=== PATIENT | female | born 1960 | race Caucasian/White ===

== ENCOUNTER 2016-12-25 08:49 | Emergency (ER) | payer OTHER | END 2016-12-25 09:18 | disposition home or self-care (01) | LOC: MADERS 08:49 | DX: J01.90 Acute sinusitis, unspecified (principal); J44.9 Chronic obstructive pulmonary disease, unspecified; F17.210 Nicotine dependence, cigarettes, uncomplicated | CPT/HCPCS: 99283 ==

== ENCOUNTER 2018-02-03 14:54 | Emergency (ER) | payer SELFPAY ==
[2018-02-03] MEDS ORDERED: Azithromycin 250 MG TAB ONE (15:33)
== END 2018-02-03 15:40 | disposition left against medical advice (07) ==
LOC: MADERS 14:54
DX: R06.00 Dyspnea, unspecified (principal); L30.9 Dermatitis, unspecified; K58.9 Irritable bowel syndrome, unspecified; Z87.891 Personal history of nicotine dependence
CPT/HCPCS: 99284

== ENCOUNTER 2018-07-09 11:59 | Emergency (ER) | payer SELFPAY ==
[2018-07-09] MEDS ORDERED: Azithromycin 250 MG TAB ONE (13:17)
[2018-07-09] MEDS ORDERED: predniSONE 20 MG TAB ONE (13:17)
--- NOTE | 2018-07-09 13:21 | RAD ---
PORTABLE CHEST 1 VIEW: Date: 07/09/18 Time: 1224 hours HISTORY: Dyspnea. FINDINGS: Comparison made with exam of 10/14/07. The heart size is normal. The aorta is tortuous. The lungs are well expanded without focal areas of c onsolidation, pneumothoraces, or pleural effusions. IMPRESSION: No radiographic evidence of acute cardiopulmonary process. POS: [facility]
== END 2018-07-09 13:30 | disposition home or self-care (01) ==
LOC: MADERS 11:59
DX: J44.1 Chronic obstructive pulmonary disease with (acute) exacerbation (principal); B19.20 Unspecified viral hepatitis C without hepatic coma; Z87.891 Personal history of nicotine dependence; Z79.51 Long term (current) use of inhaled steroids
CPT/HCPCS: 71045; 87804; 93005

== ENCOUNTER 2018-07-27 18:43 | Emergency (ER) | payer OTHER, SELFPAY ==
--- NOTE | 2018-07-27 19:28 | RAD ---
FExam: Two views chest Provided clinical history: Cough FINDINGS: Comparison 07/09/2018. Cardiac and mediastinal silhouette is within normal limits. Lungs appear clear. No pleural fluid or pneumothorax apparent. Chronic obstructive changes are redemonstrated. IMPRESSION: No evidence for an acute cardiopulmonary process.
[2018-07-27] MEDS ORDERED: Dexamethasone 4 MG TAB ONE (19:43)
== END 2018-07-27 19:58 ==
LOC: MADERS 18:43
DX: J42 Unspecified chronic bronchitis (principal); F17.210 Nicotine dependence, cigarettes, uncomplicated; Z71.6 Tobacco abuse counseling; Z79.51 Long term (current) use of inhaled steroids
CPT/HCPCS: 71046; 99406; J7620; J8540

== ENCOUNTER 2018-08-01 15:49 | Emergency (ER) | payer OTHER ==
[~2018-08-01 15:49] MED LIST: Iopamidol 370 76% 100 ML VIAL ONE
--- NOTE | 2018-08-01 17:12 | CT ---
FCT abdomen with contrast CT pelvis with contrast: 08/01/2018 HISTORY: 57-year-old female with right upper quadrant abdominal pain COMPARISON: None FINDINGS: Large bullae at base of left lung. No pleural effusion or consolidation at lung bases. Lack of viscer al fat decreases the sensitivity for the detection of pneumoperitoneum and small amount of ascites. L arge volume of stool throughout the colon. No abdominal aortic aneurysm. Bilateral kidneys, liver, sp mika, adrenals, and pancreas, demonstrate no abnormality. Evaluation of the pancreas is also limited because of lack of visceral fat. No small bowel dilation. Gallbladder is not significantly distended. No portal vein thrombosis. Atherosclerotic calcification of abdominal aorta. IMPRESSION: 1. Constipation. 2. Paraseptal emphysema, with large bullae at left lung base.
[2018-08-01 17:15] LABS: ALT (SGPT) 12 U/L (8-55); AST (SGOT) 11 U/L (5-34); Albumin 4.3 g/dL (3.5-5.0); Alkaline Phosphatase 72 U/L (40-150); Anion Gap 17 mmol/L (10-20); BUN (Urea Nitrogen) 14 mg/dL (9.8-20.1); Bilirubin, Total Less than 0.2 mg/dL (0.2-1.2); Calc. Creatinine Clearance 0 mL/min (70-130); Calcium 9.5 mg/dL (7.8-10.44); Carbon Dioxide 28 mmol/L (22-29); Chloride 103 mmol/L (98-107); Estimated GFR-MDRD 87; Globulin 3.1 g/dL (2.4-3.5); Glucose 93 mg/dL (70-105); Lipase 17 U/L (8-78); Potassium 4.5 mmol/L (3.5-5.1); Protein, Total 7.4 g/dL (6.0-8.3); Sodium 143 mmol/L (136-145)
[2018-08-01 17:22] LABS: Band 1 % (5-11); Hemoglobin 13.9 g/dL (12.0-16.0); Lymphocytes 20 % (21-51); MDiff Complete? YES; Mean Corpuscular Hemoglobin 29.5 pg (27.0-31.0); Mean Corpuscular Volume 92.3 fL (78.0-98.0); Mean Platelet Volume 7.1 fL (7.4-10.4); Monocytes 4 % (0-10); Neutrophil 75 % (42-75); Platelet Count 377 thou/uL (130-400); Platelet Morphology Comment Appears Adequate; RBC Distribution Width 12.2 % (11.5-14.5); White Blood Cell (WBC) Count 9.3 thou/uL (4.8-10.8)
== END 2018-08-01 17:48 ==
LOC: EEVIPCON 15:49 → MADERS 15:49
DX: R10.13 Epigastric pain (principal); J44.9 Chronic obstructive pulmonary disease, unspecified; F17.210 Nicotine dependence, cigarettes, uncomplicated; Z79.51 Long term (current) use of inhaled steroids
CPT/HCPCS: 74177; 80053; 83690; 85025; 93005; 96372; J0500; Q9967

== ENCOUNTER 2019-11-28 05:10 | Emergency (ER) | payer OTHER, SELFPAY ==
[2019-11-28 06:22] LABS: Hemoglobin 14.9 g/dL (12.0-16.0); Lymphocytes 8 % (21-51); MDiff Complete? YES; Mean Corpuscular HGB CONC 31.9 g/dL (32.0-36.0); Mean Corpuscular Hemoglobin 29.5 pg (27.0-31.0); Mean Corpuscular Volume 92.6 fL (78.0-98.0); Mean Platelet Volume 8.3 fL (7.4-10.4); Monocytes 1 % (0-10); Neutrophil 91 % (42-75); Platelet Count 254 thou/uL (130-400); RBC Distribution Width 12.4 % (11.5-14.5); Red Blood Cell (RBC) Count 5.04 mill/uL (4.20-5.40); White Blood Cell (WBC) Count 19.8 thou/uL (4.8-10.8)
[2019-11-28 06:35] LABS: ALT (SGPT) 25 U/L (8-55); AST (SGOT) 22 U/L (5-34); Albumin 4.3 g/dL (3.5-5.0); Alkaline Phosphatase 71 U/L (40-110); Anion Gap 21 mmol/L (10-20); BUN (Urea Nitrogen) 17 mg/dL (9.8-20.1); Bilirubin, Total 0.5 mg/dL (0.2-1.2); CK (CPK) 60 U/L (29-168); Calc. Creatinine Clearance 0 mL/min (70-130); Calcium 9.2 mg/dL (7.8-10.44); Carbon Dioxide 17 mmol/L (22-29); Chloride 106 mmol/L (98-107); Estimated GFR-MDRD 75; Globulin 3.3 g/dL (2.4-3.5); Glucose 118 mg/dL (70-105); Lipase 7 U/L (8-78); Potassium 4.5 mmol/L (3.5-5.1); Protein, Total 7.6 g/dL (6.0-8.3); Sodium 139 mmol/L (136-145)
[2019-11-28] MEDS ORDERED: Cefepime 2 GM VIAL ONE (06:44)
[2019-11-28 06:59] LABS: Acetaminophen Less than 6.0 mcg/mL (10.0-30.0); Alcohol Less than 10 mg/dL (Less than 10); Salicylate Less than 8.0 mg/dL (15.0-30.0)
[2019-11-28 07:18] LABS: Bilirubin Large (Negative); Blood, Urine Negative (Negative); Glucose, Urine (Dipstick) 100 mg/dL (Negative); Ketone, Urine 15 mg/dL (Negative); Leukocyte Large (Negative); Nitrite Positive (Negative); Protein, Urine (Dipstick) 100 mg/dL (Neg-Trace)
[2019-11-28 07:19] LABS: Clarity Slightly Cloudy (Clear)
[2019-11-28 07:20] LABS: Mucous/LPF 2+ LPF (<2+)
[2019-11-28 07:22] LABS: Bacteria/HPF Rare-Few HPF (None Seen); RBC/HPF 0-3 HPF (0-3)
[2019-11-28 07:25] LABS: Amphetamine Detected (NotDetected); Barbiturates Screen Not Detected (NotDetected); Benzodiazepine Screen Detected (NotDetected); Cocaine Metabolite Screen Not Detected (NotDetected); Medtox Control Line Valid? VALID (VALID); Methadone Not Detected (NotDetected); Methamphetamine Detected (NotDetected); Opiate Screen Not Detected (NotDetected); Oxycodone Screen Not Detected (NotDetected); Phencyclidine (PCP) Not Detected (NotDetected); THC/Cannabinoid Screen Not Detected (NotDetected); Tricyclic Screen Not Detected (NotDetected)
--- NOTE | 2019-11-28 07:39 | CT ---
CT Abdomen Pelvis WO Con History: Abdominal pain Comparison: CT examination July 2018 Findings: Large bullous formation left lower lobe. No nephroureterolithiasis or hydroureteronephrosis . No secondary evidence of a recently passed stone. Incompletely evaluated colonic thickening at the transverse colon and splenic flexure also some invol vement of the descending colon. Mild pericolonic inflammation at the splenic flexure. Noncontrast evaluation of liver, pancreas, adrenal glands are unremarkable. No acute osseous abnormal ity. Impression: Long segment transverse and descending colitis incompletely evaluated without intravenous contrast. No nephroureterolithiasis or hydroureteronephrosis. No secondary evidence of a recently passed stone.
[2019-11-29 11:54] LABS: SARS-CoV-2 MS2 Positive; SARS-CoV-2 N Gene Negative; SARS-CoV-2 S Gene Negative; SARS-CoV-2 by NAA Not Detected (NotDetected); SARS-CoV-2 orf1ab Negative
== END 2019-11-28 08:55 | disposition left against medical advice (07) ==
LOC: MADERS 05:10
DX: K52.9 Noninfective gastroenteritis and colitis, unspecified (principal); J44.9 Chronic obstructive pulmonary disease, unspecified; F41.9 Anxiety disorder, unspecified; F17.210 Nicotine dependence, cigarettes, uncomplicated; Z79.899 Other long term (current) drug therapy
CPT/HCPCS: 36416; 74176; 80053; 80306; 80307; 81003; 81015; 82274; 82550; 83690; 84484; 85025; 87086; 87635; 93005; 96372; J0500; J0692; U0003

== ENCOUNTER 2020-07-31 22:23 | Emergency (ER) | payer OTHER, SELFPAY ==
[2020-07-31] MEDS ORDERED: Ondansetron ODT 4 MG TAB ONE (23:03)
[2020-07-31] MEDS ORDERED: Morphine 4 MG/ML VIAL ONE (23:03)
[2020-08-01 00:07] LABS: #Basophils 0.1 thou/uL (0.0-0.2); #Eosinphils 0.2 thou/uL (0.0-0.7); #Lymphocytes 1.6 thou/uL (1.20-3.40); #Monocytes 0.8 thou/uL (0.11-0.59); %Eosinophils 1.7 % (0.0-10.0); %Monocytes 6.4 % (0.0-10.0); %Neutrophils 76.8 % (42.0-75.0); Mean Corpuscular HGB CONC 30.6 g/dL (32.0-36.0); Mean Corpuscular Hemoglobin 29.4 pg (27.0-31.0); Mean Corpuscular Volume 96.1 fL (78.0-98.0); Mean Platelet Volume 6.6 fL (7.4-10.4); Platelet Count 447 thou/uL (130-400); RBC Distribution Width 12.2 % (11.5-14.5); Red Blood Cell (RBC) Count 3.73 mill/uL (4.20-5.40); White Blood Cell (WBC) Count 11.7 thou/uL (4.8-10.8)
[2020-08-01 00:10] LABS: Bilirubin Negative (Negative); Blood, Urine Negative (Negative); Clarity Cloudy (Clear); Glucose, Urine (Dipstick) Negative (Negative); Ketone, Urine Negative (Negative); Leukocyte Trace (Negative); Nitrite Positive (Negative); Protein, Urine (Dipstick) Negative (Neg-Trace)
[2020-08-01 00:14] LABS: ALT (SGPT) 13 U/L (8-55); AST (SGOT) 35 U/L (5-34); Albumin 3.4 g/dL (3.5-5.0); Alkaline Phosphatase 121 U/L (40-110); Anion Gap 15 mmol/L (10-20); BUN (Urea Nitrogen) 11 mg/dL (9.8-20.1); Bilirubin, Total 0.2 mg/dL (0.2-1.2); Calc. Creatinine Clearance 0 mL/min (70-130); Calcium 8.4 mg/dL (7.8-10.44); Carbon Dioxide 24 mmol/L (22-29); Chloride 105 mmol/L (98-107); Globulin 3.1 g/dL (2.4-3.5); Glucose 84 mg/dL (70-105); Lipase 18 U/L (8-78); Potassium 4.2 mmol/L (3.5-5.1); Protein, Total 6.5 g/dL (6.0-8.3); Sodium 140 mmol/L (136-145)
[2020-08-01 00:18] LABS: Bacteria/HPF 4+ HPF (None Seen); Mucous/LPF Rare LPF (<2+); RBC/HPF 0-3 HPF (0-3)
[2020-08-01] MEDS ORDERED: Morphine 4 MG/ML VIAL ONE (00:34)
[2020-08-01] MEDS ORDERED: cefTRIAXone\\ROCEPHIN 1 GM VIAL ONE (00:49)
== END 2020-08-01 01:30 | disposition home or self-care (01) ==
LOC: MADERS 22:23
DX: R19.00 Intra-abdominal and pelvic swelling, mass and lump, unspecified site (principal); N39.0 Urinary tract infection, site not specified; J44.9 Chronic obstructive pulmonary disease, unspecified; F17.210 Nicotine dependence, cigarettes, uncomplicated; B19.20 Unspecified viral hepatitis C without hepatic coma
CPT/HCPCS: 74176; 80053; 81003; 81015; 83605; 83690; 85025; 87077; 87086; 87186; 96372; 96374; 96375; J0696; J2270; Q0162

== ENCOUNTER 2020-08-13 20:27 | Emergency (ER) | payer MEDICAID, OTHER, SELFPAY ==
[2020-08-13] MEDS ORDERED: Morphine 2 MG/ML VIAL ONE (21:24)
[2020-08-13 21:27] LABS: #Basophils 0.1 thou/uL (0.0-0.2); #Eosinphils 0.1 thou/uL (0.0-0.7); #Lymphocytes 0.8 thou/uL (1.20-3.40); #Monocytes 0.7 thou/uL (0.11-0.59); #Neutrophils 7.7 thou/uL (1.40-6.50); %Basophils 1.4 % (0.0-1.0); %Eosinophils 0.7 % (0.0-10.0); %Lymphocytes 8.3 % (21.0-51.0); %Monocytes 7.2 % (0.0-10.0); %Neutrophils 82.3 % (42.0-75.0); Hemoglobin 12.2 g/dL (12.0-16.0); Mean Corpuscular HGB CONC 30.8 g/dL (32.0-36.0); Mean Corpuscular Hemoglobin 29.1 pg (27.0-31.0); Mean Corpuscular Volume 94.5 fL (78.0-98.0); Mean Platelet Volume 6.8 fL (7.4-10.4); Platelet Count 440 thou/uL (130-400); RBC Distribution Width 12.9 % (11.5-14.5); White Blood Cell (WBC) Count 9.4 thou/uL (4.8-10.8)
[2020-08-13] MEDS ORDERED: Cefepime 2 GM VIAL ONE (21:34)
[2020-08-13] MEDS ORDERED: Sodium Chloride 0.9% 100 ML ONE (21:34)
[2020-08-13 21:48] LABS: ALT (SGPT) 10 U/L (8-55); AST (SGOT) 46 U/L (5-34); Alkaline Phosphatase 144 U/L (40-110); Anion Gap 14 mmol/L (10-20); BUN (Urea Nitrogen) 9 mg/dL (9.8-20.1); Bilirubin, Total 0.2 mg/dL (0.2-1.2); Calc. Creatinine Clearance 0 mL/min (70-130); Calcium 9.8 mg/dL (7.8-10.44); Carbon Dioxide 27 mmol/L (22-29); Chloride 101 mmol/L (98-107); Globulin 3.4 g/dL (2.4-3.5); Glucose 90 mg/dL (70-105); Lipase 6 U/L (8-78); Potassium 4.1 mmol/L (3.5-5.1); Protein, Total 7.4 g/dL (6.0-8.3); Sodium 138 mmol/L (136-145)
[2020-08-13 22:25] LABS: Bilirubin Negative (Negative); Blood, Urine Moderate (Negative); Clarity Clear (Clear); Glucose, Urine (Dipstick) Negative (Negative); Ketone, Urine Negative (Negative); Leukocyte Trace (Negative); Nitrite Negative (Negative); Protein, Urine (Dipstick) Negative (Neg-Trace); Specific Gravity, Urine 1.025 (1.005-1.030)
[2020-08-13] MEDS ORDERED: Morphine 4 MG/ML VIAL ONE (22:29)
[2020-08-13 22:37] LABS: Bacteria/HPF Rare-Few HPF (None Seen); Mucous/LPF 1+ LPF (<2+)
[2020-08-13 22:38] LABS: Trichomonas/HPF Rare HPF (None Seen)
[2020-08-13 22:41] LABS: SARS-CoV-2 NAA Rapid Test DETECTED (NotDetected)
[2020-08-14] MEDS ORDERED: Morphine 4 MG/ML VIAL ONE (00:45)
== END 2020-08-14 01:02 | disposition short-term general hospital (02) ==
LOC: MADERS 20:27
DX: A41.89 Other specified sepsis (principal); U07.1 COVID-19; R10.817 Generalized abdominal tenderness; R00.0 Tachycardia, unspecified; R14.0 Abdominal distension (gaseous); J44.9 Chronic obstructive pulmonary disease, unspecified; K58.9 Irritable bowel syndrome, unspecified; F17.210 Nicotine dependence, cigarettes, uncomplicated; Z20.822 Contact with and (suspected) exposure to COVID-19
CPT/HCPCS: 0240U; 71260; 74177; 80053; 81003; 81015; 83605; 83690; 85025; 87040; 87086; 87149; 96365; 96367; 96375; 96376; J0692; J2270; J3370; J3490; J7050; Q9967